=== PATIENT | female | born 2005 | race African-American/Black ===

== ENCOUNTER 2025-01-21 08:58 | Emergency (ER) | payer MEDICAID ==
[~2025-01-21] VITALS: Ht 165.1 cm; Wt 47.0 kg
[2025-01-21 09:03] VITALS: O2SAT 99
[2025-01-21] MEDS ORDERED: AMOX1TAB16 PO (09:21)
[2025-01-21] MEDS ORDERED: TOPUD PO (09:21)
[2025-01-21 09:38] VITALS: BP 122/76; PULSE 82; RESP 16; TEMP 36.9; O2SAT 99
== END 2025-01-21 09:50 | disposition home or self-care (01) ==
LOC: ER 09:49
DX: J02.9 Acute pharyngitis, unspecified (principal); J45.909 Unspecified asthma, uncomplicated
CPT/HCPCS: 99283

== ENCOUNTER 2025-04-06 08:36 | Emergency (ER) | payer OTHER ==
[~2025-04-06] VITALS: Ht 165.1 cm; Wt 48.0 kg
[~2025-04-06 08:36] MED LIST: AMOX1TAB16 PO; TOPUD PO
[2025-04-06 08:49] VITALS: BP 112/78; TEMP 36.9; O2SAT 99
[2025-04-06 08:50] VITALS: PULSE 109; RESP 18; O2SAT 99
[2025-04-06] MEDS: TETRACAINE 0.5% OPHTH DROPS 4ML RIGHTEYE ONE (09:15)
[2025-04-06] MEDS: FLUORESCEIN SODIUM 1MG/STRIP RIGHTEYE ONE (09:15)
[2025-04-06] MEDS ORDERED: MOXI3DRO12 RIGHTEYE (09:29)
== END 2025-04-06 09:52 | disposition home or self-care (01) ==
LOC: ER 08:36
DX: S05.01XA Injury of conjunctiva and corneal abrasion without foreign body, right eye, initial encounter (principal); J45.909 Unspecified asthma, uncomplicated; Z79.899 Other long term (current) drug therapy; X58.XXXA Exposure to other specified factors, initial encounter; Y93.89 Activity, other specified; Y92.89 Other specified places as the place of occurrence of the external cause; Y99.8 Other external cause status
CPT/HCPCS: 99283